=== PATIENT | male | born 1970 | race Caucasian/White ===

== ENCOUNTER 2018-02-18 16:35 | Emergency (ER) | payer SELFPAY, OTHER ==
[2018-02-18] MEDS: KETOROLAC 30 MG INJ IV (18:51)
[2018-02-18] MEDS: SOD CHLORIDE 0.9% 1,000 ML IV (18:51)
[2018-02-18] MEDS: CLINDAMYCIN 900 MG/D5W (PMX) 50 ML IVPB (18:51)
== END 2018-02-18 21:14 | disposition home or self-care (01) ==
LOC: FTE 16:35
DX: S41.151A Open bite of right upper arm, initial encounter (principal); J45.909 Unspecified asthma, uncomplicated; W55.01XA Bitten by cat, initial encounter; Y92.039 Unspecified place in apartment as the place of occurrence of the external cause
CPT/HCPCS: 96365; 96375; 99284-25; J1885